=== PATIENT | female | born 1955 | race Caucasian/White ===

== ENCOUNTER 2020-06-28 14:44 | Emergency (ER) | payer MEDICARE, MEDICAID ==
[~2020-06-28] VITALS: Ht 160 cm; Wt 72.7 kg
[2020-06-28 16:11] LABS: BASOPHILS # (AUTO) 0.1 X10'3 (0-0.2); BASOPHILS % (AUTO) 1.3 % (0-1); EOSINOPHILS # (AUTO) 0.3 X10'3 (0-0.9); EOSINOPHILS % (AUTO) 2.5 % (0-6); HEMATOCRIT 51.4 % (35.0-45.0); HEMOGLOBIN 17.3 g/dl (12.0-16.0); LYMPHOCYTES # (AUTO) 2.7 X10'3 (1.1-4.8); LYMPHOCYTES % (AUTO) 24.3 % (21-51); MEAN CORPUSCULAR HEMOGLOBIN 28.2 PG (27.0-31.0); MEAN CORPUSCULAR HGB CONC 33.7 g/dL (33.0-36.5); MEAN CORPUSCULAR VOLUME 83.8 FL (78-98); MEAN PLATELET VOLUME 9.4 FL (7.4-10.4); MONOCYTES # (AUTO) 0.5 X10'3 (0-0.9); MONOCYTES % (AUTO) 4.9 % (2-12); NEUTROPHILS # (AUTO) 7.4 X10'3 (1.8-7.7); PLATELET COUNT 251 X10'3 (140-440); RED BLOOD COUNT 6.13 X10'6 (4.20-5.60); RED CELL DISTRIBUTION WIDTH 17.1 % (11.5-14.5)
--- NOTE | 2020-06-28 16:18 | NUR ---
PATIENT HAS WET PULL-UP. CLEANED UP AND DIAPER APPLIED. REDNESS NOTED TO GROIN AND BUTTOCKS, WITH BURNING SENSATION, PER PATIENT.
[2020-06-28 16:24] LABS: ALANINE AMINOTRANSFERASE 23 U/L (12-78); ALBUMIN 3.6 G/DL (3.4-5.0); ALBUMIN/GLOBULIN RATIO 0.8 (1.1-1.5); ALKALINE PHOSPHATASE 117 IU/L (46-116); ANION GAP 12 (8-16); ASPARTATE AMINO TRANSFERASE 19 U/L (10-37); BLOOD UREA NITROGEN 11 MG/DL (7-18); BUN/CREATININE RATIO 14.3 (6.6-38.0); CALCIUM 9.5 MG/DL (8.5-10.1); CHLORIDE 102 MMOL/L (99-107); CREATININE 0.77 MG/DL (0.40-0.90); GLUCOSE 118 MG/DL (70-104); POTASSIUM 3.4 MMOL/L (3.5-5.1); SODIUM 138 MMOL/L (135-145); TOTAL CARBON DIOXIDE 24.1 MMOL/L (24-32); TOTAL PROTEIN 8.3 G/DL (6.4-8.2); eGFR 75 ML/MIN
[2020-06-28 17:06] LABS: CLARITY,URINE CLOUDY (Clear); COLOR,URINE YELLOW (Yellow); GLUCOSE, URINE NEGATIVE (Neg); KETONES,URINE NEGATIVE (Neg); LEUKOCYTE ESTERASE ,URINE MODERATE (Neg); NITRITES, URINE POSITIVE (Neg); OCCULT BLOOD,URINE SMALL (Neg); PROTEIN,URINE 30 mg/dl (Neg); UA COLLECTION TYPE STRAIGHT CATH; UROBILINOGEN,URINE 0.2 E.U/dL (0.2-1.0)
[2020-06-28] MEDS ORDERED: normal saline 1000ML IV soln IVB ONE (17:10)
[2020-06-28 17:11] LABS: BACTERIA,URINE 4+ /HPF (Neg); MUCUS STRANDS NONE SEEN /LPF (Neg); SQUAMOUS EPITHELIAL CELL,UR FEW /LPF (FEW); TRANSITIONAL EPI CELLS,URINE FEW /HPF; WBC,URINE TNTC /HPF (0-4)
[2020-06-28 17:12] LABS: WBC CLUMPS,URINE MODERATE /HPF (NEGATIVE)
[2020-06-28] MEDS ORDERED: sulfamethoxazole/trimethoprim DS (800/160mg) tablet PO ONE (17:30)
[2020-06-28] MEDS ORDERED: AMIT25TA9 PO (18:35)
[2020-06-28] MEDS ORDERED: DIGO125T PO (18:35)
[2020-06-28] MEDS ORDERED: PANT-47 PO (18:35)
[2020-06-28] MEDS ORDERED: RIVA20TA PO (18:35)
[2020-06-28] MEDS ORDERED: GABA300C PO (18:35)
[2020-06-28] MEDS ORDERED: NITR100C6 PO (18:35)
[2020-06-28] MEDS ORDERED: KEP500T PO (18:35)
[2020-06-28 19:18] VITALS: BP 166/106
== END 2020-06-28 19:30 | disposition home or self-care (01) ==
LOC: ER 14:45
DX: N39.0 Urinary tract infection, site not specified (principal); R31.9 Hematuria, unspecified; I48.91 Unspecified atrial fibrillation; Z88.0 Allergy status to penicillin; Z88.1 Allergy status to other antibiotic agents; Z88.5 Allergy status to narcotic agent; Z88.8 Allergy status to other drugs, medicaments and biological substances; Z79.899 Other long term (current) drug therapy; Z20.828 Contact with and (suspected) exposure to other viral communicable diseases
CPT/HCPCS: 36415; 80053; 81001; 84484; 85025; 87635; 93005; 99285; C9803; J7030; 99284

== ENCOUNTER 2020-08-07 10:54 | Emergency (ER) | payer BC, MEDICAID ==
[~2020-08-07] VITALS: Ht 160 cm; Wt 75.9 kg
[~2020-08-07 10:54] MED LIST: AMIT25TA9 PO; GABA300C PO; KEP500T PO; NITR100C6 PO; PANT-47 PO; RIVA20TA PO
[2020-08-07] MEDS ORDERED: normal saline 1000ml 1,000 ML IV ONE (11:35)
[2020-08-07] MEDS ORDERED: meclizine 12.5mg tablet PO ONE ×2 (11:35→16:25)
--- NOTE | 2020-08-07 11:41 | NUR ---
helped change the patient. 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 pt has been putting a mixture of coconut oil, honey and vaseline on her wounds and rash
[2020-08-07 11:49] LABS: BASOPHILS # (AUTO) 0.1 X10'3 (0-0.2); BASOPHILS % (AUTO) 0.8 % (0-1); EOSINOPHILS # (AUTO) 0.3 X10'3 (0-0.9); EOSINOPHILS % (AUTO) 2.7 % (0-6); HEMATOCRIT 49.5 % (35.0-45.0); HEMOGLOBIN 16.1 g/dl (12.0-16.0); LYMPHOCYTES # (AUTO) 2.3 X10'3 (1.1-4.8); LYMPHOCYTES % (AUTO) 24.3 % (21-51); MEAN CORPUSCULAR HEMOGLOBIN 27.9 PG (27.0-31.0); MEAN CORPUSCULAR HGB CONC 32.5 g/dL (33.0-36.5); MEAN CORPUSCULAR VOLUME 85.9 FL (78-98); MEAN PLATELET VOLUME 9.8 FL (7.4-10.4); MONOCYTES # (AUTO) 0.6 X10'3 (0-0.9); MONOCYTES % (AUTO) 6.4 % (2-12); NEUTROPHILS # (AUTO) 6.3 X10'3 (1.8-7.7); NEUTROPHILS % (AUTO) 65.8 % (42-75); PLATELET COUNT 183 X10'3 (140-440); RED BLOOD COUNT 5.76 X10'6 (4.20-5.60); RED CELL DISTRIBUTION WIDTH 16.3 % (11.5-14.5); WHITE BLOOD COUNT 9.6 X10'3 (4.5-11.0)
[2020-08-07] MEDS ORDERED: MECL-184 PO (11:59)
[2020-08-07 12:29] LABS: ALANINE AMINOTRANSFERASE 15 U/L (12-78); ALBUMIN 3.5 G/DL (3.4-5.0); ALBUMIN/GLOBULIN RATIO 0.8 (1.1-1.5); ALKALINE PHOSPHATASE 104 IU/L (46-116); ANION GAP 7 (8-16); ASPARTATE AMINO TRANSFERASE 13 U/L (10-37); BILIRUBIN,TOTAL 0.9 MG/DL (0.1-1.0); BLOOD UREA NITROGEN 12 MG/DL (7-18); BUN/CREATININE RATIO 9.1 (6.6-38.0); CALCIUM 9.9 MG/DL (8.5-10.1); CHLORIDE 102 MMOL/L (99-107); CREATININE 1.32 MG/DL (0.40-0.90); GLUCOSE 118 MG/DL (70-104); SODIUM 139 MMOL/L (135-145); TOTAL CARBON DIOXIDE 30.4 MMOL/L (24-32); TOTAL PROTEIN 7.9 G/DL (6.4-8.2); eGFR 40 ML/MIN
[2020-08-07 12:32] LABS: MAGNESIUM 2.2 MG/DL (1.5-2.4); TROPONIN I < 0.04 NG/ML (0.0-0.05)
[2020-08-07 12:35] LABS: POTASSIUM 4.4 MMOL/L (3.5-5.1)
--- NOTE | 2020-08-07 12:46 | NUR ---
JAMIE ECHEVARRIA AT BEDSIDE TO LOOK AT [facility] AND DISCUSS HOME HEALTH AND SOCIAL SERVICE CONSULT.
[2020-08-07 12:48] VITALS: BP 93/63
--- NOTE | 2020-08-07 12:57 | NUR ---
Pt is a very difficult IV start. Provider aware and states ok to give PO liquids and hold of on IV.
[2020-08-07] MEDS ORDERED: HYDROcodone/acetaminophen 5mg/325mg tablet PO STA (12:58)
[2020-08-07] MEDS ORDERED: ondansetron 4mg rapidly disintigrating tab PO STA (12:58)
--- NOTE | 2020-08-07 14:40 | NUR ---
PICC LINE NURSE AT BEDSIDE TO INITIATE IV
--- NOTE | 2020-08-07 15:12 | NUR ---
Straight cath inserted to collect UA. Barrier cream placed to wounds on buttocks and patient repostioned.
[2020-08-07] MEDS ORDERED: morphine 2 MG/ML inj. syringe IV PRN (15:25)
[2020-08-07 15:32] LABS: CLARITY,URINE CLOUDY (Clear); COLOR,URINE YELLOW (Yellow); GLUCOSE, URINE NEGATIVE (Neg); KETONES,URINE TRACE mg/dl (Neg); LEUKOCYTE ESTERASE ,URINE SMALL (Neg); NITRITES, URINE NEGATIVE (Neg); OCCULT BLOOD,URINE NEGATIVE (Neg); PROTEIN,URINE 100 mg/dl (Neg)
[2020-08-07 15:42] LABS: UA COLLECTION TYPE STRAIGHT CATH
[2020-08-07 15:47] LABS: SQUAMOUS EPITHELIAL CELL,UR MANY /LPF (FEW)
[2020-08-07 15:48] LABS: BACTERIA,URINE 3+ /HPF (Neg); HYALINE CASTS >30 /LPF (NEGATIVE)
[2020-08-07 15:49] LABS: MUCUS STRANDS MODERATE /LPF (Neg); WBC CLUMPS,URINE MANY /HPF (NEGATIVE); WBC,URINE 50-100 /HPF (0-4)
[2020-08-07] MEDS ORDERED: NITR100C6 PO (16:07)
== END 2020-08-07 17:24 | disposition home or self-care (01) ==
LOC: ER 10:55
DX: N39.0 Urinary tract infection, site not specified (principal); E56.0 Deficiency of vitamin E; R42 Dizziness and giddiness; I48.91 Unspecified atrial fibrillation; Z86.73 Personal history of transient ischemic attack (TIA), and cerebral infarction without residual deficits; Z87.440 Personal history of urinary (tract) infections; Z88.0 Allergy status to penicillin; Z88.1 Allergy status to other antibiotic agents; Z88.5 Allergy status to narcotic agent; Z88.8 Allergy status to other drugs, medicaments and biological substances; Z79.899 Other long term (current) drug therapy
CPT/HCPCS: 36415; 71045; 76937; 80053; 81001; 82948; 83735; 84484; 85025; 87088; 93005; 96361; 96374; 99285; J2270; J7030; J8597

== ENCOUNTER 2020-09-12 15:48 | Emergency (ER) | payer BC, MEDICAID ==
[~2020-09-12] VITALS: Ht 160 cm; Wt 80.0 kg
[~2020-09-12 15:48] MED LIST changes: +MECL-184 PO
[2020-09-12 16:32] LABS: CLARITY,URINE CLOUDY (Clear); COLOR,URINE YELLOW (Yellow); GLUCOSE, URINE NEGATIVE (Neg); KETONES,URINE NEGATIVE (Neg); LEUKOCYTE ESTERASE ,URINE SMALL (Neg); NITRITES, URINE NEGATIVE (Neg); OCCULT BLOOD,URINE TRACE-INTACT (Neg); PROTEIN,URINE NEGATIVE (Neg)
[2020-09-12 16:41] LABS: UA COLLECTION TYPE STRAIGHT CATH
[2020-09-12 16:42] LABS: BACTERIA,URINE 1+ /HPF (Neg); MUCUS STRANDS MODERATE /LPF (Neg); RBC,URINE 0-2 /HPF (0-2); SQUAMOUS EPITHELIAL CELL,UR MANY /LPF (FEW); WBC,URINE 20-30 /HPF (0-4)
[2020-09-12 17:19] LABS: BASOPHILS # (AUTO) 0.1 X10'3 (0-0.2); BASOPHILS % (AUTO) 0.8 % (0-1); EOSINOPHILS # (AUTO) 0.5 X10'3 (0-0.9); EOSINOPHILS % (AUTO) 3.9 % (0-6); HEMATOCRIT 46.1 % (35.0-45.0); HEMOGLOBIN 15.3 g/dl (12.0-16.0); LYMPHOCYTES # (AUTO) 2.6 X10'3 (1.1-4.8); LYMPHOCYTES % (AUTO) 19.1 % (21-51); MEAN CORPUSCULAR HEMOGLOBIN 27.4 PG (27.0-31.0); MEAN CORPUSCULAR HGB CONC 33.1 g/dL (33.0-36.5); MEAN CORPUSCULAR VOLUME 82.8 FL (78-98); MEAN PLATELET VOLUME 9.3 FL (7.4-10.4); MONOCYTES # (AUTO) 0.6 X10'3 (0-0.9); MONOCYTES % (AUTO) 4.4 % (2-12); NEUTROPHILS # (AUTO) 9.6 X10'3 (1.8-7.7); NEUTROPHILS % (AUTO) 71.8 % (42-75); PLATELET COUNT 252 X10'3 (140-440); RED BLOOD COUNT 5.57 X10'6 (4.20-5.60); RED CELL DISTRIBUTION WIDTH 15.9 % (11.5-14.5); WHITE BLOOD COUNT 13.3 X10'3 (4.5-11.0)
[2020-09-12 17:28] LABS: ALANINE AMINOTRANSFERASE 21 U/L (12-78); ALBUMIN 2.7 G/DL (3.4-5.0); ALBUMIN/GLOBULIN RATIO 0.6 (1.1-1.5); ALKALINE PHOSPHATASE 131 IU/L (46-116); ANION GAP 10 (8-16); ASPARTATE AMINO TRANSFERASE 24 U/L (10-37); BILIRUBIN,TOTAL 0.6 MG/DL (0.1-1.0); BLOOD UREA NITROGEN 12 MG/DL (7-18); CALCIUM 8.9 MG/DL (8.5-10.1); CHLORIDE 103 MMOL/L (99-107); GLUCOSE 113 MG/DL (70-104); POTASSIUM 3.8 MMOL/L (3.5-5.1); SODIUM 138 MMOL/L (135-145); TOTAL CARBON DIOXIDE 24.7 MMOL/L (24-32); TOTAL PROTEIN 7.2 G/DL (6.4-8.2); eGFR 72 ML/MIN
[2020-09-12 17:49] VITALS: BP 148/97
[2020-09-12] MEDS ORDERED: sulfamethoxazole/trimethoprim DS (800/160mg) tablet PO ONE (17:55)
[2020-09-12] MEDS ORDERED: diazepam 5mg tablet PO ONE (17:55)
[2020-09-12] MEDS ORDERED: diltiazem 30mg tablet PO ONE (18:05)
[2020-09-12] MEDS ORDERED: SULF1TAB49 PO (18:17)
--- NOTE | 2020-09-12 18:24 | NUR ---
CALLED [facility] FOR PT RIDE HOME ETA 1 HOUR
--- NOTE | 2020-09-12 18:25 | NUR ---
GAVE PT MEDICATIONS AND SOME FOOD AWAITING TRANSPORT TO TAKE PT HOME
== END 2020-09-12 20:41 | disposition home or self-care (01) ==
LOC: ER 15:48
DX: N39.0 Urinary tract infection, site not specified (principal); R10.84 Generalized abdominal pain; I48.20 Chronic atrial fibrillation, unspecified; R30.0 Dysuria; M54.89 Other dorsalgia; Z86.73 Personal history of transient ischemic attack (TIA), and cerebral infarction without residual deficits; Z87.440 Personal history of urinary (tract) infections; Z88.0 Allergy status to penicillin; Z88.1 Allergy status to other antibiotic agents; Z88.8 Allergy status to other drugs, medicaments and biological substances; Z79.899 Other long term (current) drug therapy; Z79.2 Long term (current) use of antibiotics
CPT/HCPCS: 36415; 80053; 81001; 85025; 87077; 87088; 87186; 99284